=== PATIENT | male | born 1990 | race Caucasian/White ===

== ENCOUNTER 2025-03-12 17:37 | Emergency (ER) | payer MEDICAID, OTHER ==
[~2025-03-12] VITALS: Ht 170.2 cm; Wt 91.0 kg
[2025-03-12 17:43] VITALS: BP 134/81; PULSE 73; RESP 18; TEMP 36.8; O2SAT 99
[2025-03-12] MEDS: ONDANSETRON 4MG ODT PO STA (18:56)
[2025-03-12] MEDS: MAGNESIUM/ALUMINUM HYDROXIDE/SIMETHICONE 30ML UDC PO STA (18:57)
[2025-03-12 20:33] LABS: CARBON DIOXIDE 24 mEq/L (21-32); CHLORIDE 104 mEq/L (98-107); POTASSIUM 3.5 mEq/L (3.5-5.1); SODIUM 140 mEq/L (136-145)
[2025-03-12 20:34] LABS: CALCIUM 9.9 mg/dL (8.7-10.4)
[2025-03-12 20:38] LABS: BASOPHILS % 0.2 % (0.0-2.0); CREATININE 1.2 mg/dL (0.6-1.3); GLUCOSE 105 mg/dL (70-105); HEMATOCRIT. 44.2 % (42.0-52.0); HEMOGLOBIN. 15.4 g/dL (14.0-18.0); LYMPHOCYTES % 11.7 % (20.0-50.0); MEAN CORPUSCULAR HEMOGLOBIN 29.7 pg (28.0-32.0); MEAN CORPUSCULAR HGB CONC 34.8 g/dL (31.0-37.0); MEAN CORPUSCULAR VOLUME 85.5 fL (80.0-94.0); MONOCYTES % 5.4 % (2.0-8.0); NEUTROPHILS % 82.7 % (40.0-76.0); PLATELET 277 x1000/uL (130-400); RED BLOOD CELL COUNT 5.17 mill/uL (4.7-6.1); RED CELL DISTRIBUTION WIDTH 13.3 % (11.6-14.6); WHITE BLOOD COUNT 11.2 x1000/uL (4.5-11.0)
[2025-03-12 20:39] LABS: UREA NITROGEN BLOOD 13 mg/dL (9-23)
[2025-03-12 20:40] LABS: ALANINE AMINOTRANSFERASE 23 IU/L (10-49); ALBUMIN 4.7 g/dL (3.2-4.8); ASPARTATE AMINOTRANSFERASE 22 IU/L (<34)
[2025-03-12 20:41] LABS: BILIRUBIN DIRECT 0.2 mg/dL (<=3.0); BILIRUBIN TOTAL 0.6 mg/dL (0.1-1.0); PROTEIN TOTAL 7.1 g/dL (6.0-8.3); TROPONIN I HIGH SENSITIVITY 6 ng/L (3.0-53)
[2025-03-12 20:49] LABS: INR 1.1; PROTHROMBIN TIME 11.8 sec (9.6-11.0)
== END 2025-03-12 21:46 ==
LOC: ER 17:37
DX: R11.0 Nausea (principal); R03.0 Elevated blood-pressure reading, without diagnosis of hypertension; R10.84 Generalized abdominal pain
CPT/HCPCS: 99284; 80076; 80048; 83690; 85025; 85610; 84484; 36415; 93005; Q0162